=== PATIENT | male | born 1945 | race Caucasian/White ===

== ENCOUNTER 2018-05-14 12:12 | Emergency (ER) | payer MEDICARE ==
[2018-05-14 12:35] LABS: ABSOLUTE BASOPHILS # (AUTO) 0.1 10^3/uL (0.0-0.2); ABSOLUTE EOSINOPHILS # (AUTO) 0.1 10^3/uL (0.0-0.6); ABSOLUTE LYMPHOCYTES (AUTO) 1.6 10^3/uL (0.5-4.7); ABSOLUTE MONOCYTES (AUTO) 1.2 10^3/uL (0.1-1.4); ABSOLUTE NEUT (AUTO) 4.7 10^3/uL (1.7-8.2); EOSINOPHILS % (AUTO) 1.9 % (0-6); HEMATOCRIT 49.2 % (37.9-51.0); LYMPHOCYTES % (AUTO) 20.8 % (13-45); MEAN CORPUSCULAR HGB CONC 34.5 g/dL (32.0-36.0); MEAN CORPUSCULAR VOLUME 96 fl (80-97); MONOCYTES % (AUTO) 15.3 % (3-13); PLATELET COUNT 265 10^3/uL (150-450); RED BLOOD COUNT 5.15 10^6/uL (4.35-5.55); RED CELL DISTRIBUTION WIDTH 14.3 % (11.5-14.0); TOTAL CELLS COUNTED % (AUTO) 100 %; WHITE BLOOD COUNT 7.7 10^3/uL (4.0-10.5)
--- NOTE | 2018-05-14 12:55 | ER Document Report ---
ED General - General Chief Complaint: Irregular Pulse Stated Complaint: CHEST PAIN Time Seen by Provider: 05/14/18 12:49 Notes: Patient brought in by EMS complaining of feeling "sick and lousy" for the past month or 2, since his . Patient's son lives with him and helps and fixing meals, etc. Patient is very nonspecific about symptoms he is having. Says he is sore all over. Complains of a headache, nausea, some shortness of breath occasionally, occasional chest pains, denies UTIs., But for the most part, patient simply answers "I do not know" to almost every question I asked him. And, after saying that, the patient then says he does not remember much of anything since his . He mentioned his 's passing at least a dozen times while I was obtaining his history of present illness. Patient is on Xarelto. He has atrial fibrillation and he thinks that is why he is on the anticoagulant. Additionally, he has medications for hypertension, high cholesterol, gout, and thyroid, as well as an antidepressant. - Related Data Allergies/Adverse Reactions: No Known Allergies Allergy (Verified 05/14/18 12:22) Past Medical History - Social History Smoking Status: Unknown if Ever Smoked Cigarette use (# per day): No Family History: Reviewed & Not Pertinent - Past Medical History Cardiac Medical History: Reports: Hx Atrial Fibrillation, Hx Hypercholesterolemia, Hx Hypertension Neurological Medical History: Denies: Hx Cerebrovascular Accident Endocrine Medical History: Reports: Hx Hypothyroidism. Denies: Hx Diabetes Mellitus Type 1, Hx Diabetes Mellitus Type 2 Musculoskeletal Medical History: Reports Hx Gout Psychiatric Medical History: Reports: Hx Depression Past Surgical History: Reports: None Review of Systems - Review of Systems Notes: REVIEW OF SYSTEMS: Patient answers I do not know to almost every question I asked him. CONSTITUTIONAL : Does not know if he has had a fever. EENT: Denies eye, ear, nose or mouth or throat pain or other symptoms. CARDIOVASCULAR: Occasional chest pain. RESPIRATORY: Occasional cough, chest congestion, or shortness of breath. GASTROINTESTINAL: Nauseated but denies abdominal pain or vomiting, or diarrhea. Does not know when he had his last bowel movement. GENITOURINARY: Does not know if he has any difficulty or painful urinating, urinary frequency, blood in urine. MUSCULOSKELETAL: Denies back or neck pain. Denies joint pain or swelling. SKIN: Denies rash or skin lesions. NEUROLOGICAL: Denies LOC or altered mental status. Says his memory has gone since his a month or 2 ago. Occasional headache. Denies sensory loss or motor deficits. ALL OTHER SYSTEMS REVIEWED AND NEGATIVE. Physical Exam - Vital signs Vitals: Pulse Ox 97 05/14/18 12:14 Interpretation: Normal, Other - Irregular heart rate. - Notes Notes: PHYSICAL EXAMINATION: GENERAL: Well-appearing, in no acute distress. Vital signs are all essentially normal. HEAD: Atraumatic, normocephalic. EYES: Pupils equal round and reactive to light, extraocular movements intact. ENT: oropharynx clear without exudates. Moist mucous membranes. NECK: Normal range of motion, supple. LUNGS: Breath sounds clear and equal bilaterally. HEART: Irregularly irregular rate at about 55 bpm. without murmurs. ABDOMEN: Soft, nontender. No guarding or rebound. No masses. BACK: No tenderness throughout entire back. EXTREMITIES: Normal range of motion without pain. No edema of either lower leg. Negative Homans bilaterally. NEUROLOGICAL: Normal speech, normal gait. Normal sensory, motor, and reflex exams. Awake, alert, and oriented x3. Cranial nerves normal. PSYCH: Normal mood, normal affect. SKIN: Warm, dry, no rashes. Course - Re-evaluation Re-evalutation: 05/14/18 16:31 Labs are all essentially normal or of minimal significance. Patient does have a couplet of PVCs on his 12-lead, but is asymptomatic. Patient is able to walk , although he says he cannot walk but very short distance. - Vital Signs Vital signs: Temp Pulse Resp BP Pulse Ox 97.6 F 13 107/69 97 05/14/18 16:27 05/14/18 16:23 05/14/18 16:23 05/14/18 16:23 - Laboratory Result Diagrams: 05/14/18 11:37 05/14/18 11:37 Laboratory results interpreted by me: 05/14/18 05/14/18 05/14/18 11:37 11:37 11:37 RDW 14.3 H Monocytes % 15.3 H PT 18.5 H BUN 30 H Calcium 11.0 H Total Bilirubin 1.6 H Direct Bilirubin 0.6 H Urine Protein Urine Blood Ur Leukocyte Esterase 09/07/18 15:49 RDW Monocytes % PT BUN Calcium Total Bilirubin Direct Bilirubin Urine Protein 30 H Urine Blood SMALL H Ur Leukocyte Esterase TRACE H - Diagnostic Test Radiology results interpreted by me: 05/14/18 16:31 Chest x-ray shows slight cardiomegaly but otherwise is normal. - EKG Interpretation by Me Rate: Normal - Rate of 55 Rhythm: A.Fib, PVC's Discharge - Discharge Clinical Impression: Generalized weakness Condition: Stable Disposition: HOME, SELF-CARE Additional Instructions: Weakness We did not find a definite cause for your weakness. This may require further medical tests. Weakness can be caused by infection, physical exhaustion , rapid weight loss, dehydration, or medicine side effects. Diseases of the muscles, heart, nerves, and blood vessels can make you weak. Sometimes the problem is simply depression or lack of exercise. You should get plenty of rest. Unless the doctor tells you otherwise, it's usually best to add short periods of regular mild exercise. Eat a nutritious diet with multiple small, low-sugar meals. If symptoms continue, additional medical evaluation will be necessary. Be sure to follow up as instructed. If you become very dizzy, nauseated, or feel like you're going to faint, lie down right away. Wait until the symptoms have passed before you get up again. Stand up slowly. Call the doctor or return if you develop chest pain, abdominal pain, severe headache, irregular heartbeat or very fast pulse, confusion, vision problems, fever, muscular pain, or any other new symptom. Depression Your evaluation reveals that you have mental depression. While symptoms may be vague, they often include disturbance of sleep, fatigue, loss of appetite , and general loss of interest in life. While depression may be a side effect of drugs, or a reaction to a major change in your life, many cases have no known cause. If depression is acute, and related to a major loss in your life, you can expect it to clear completely with time. If you have been depressed a long time , are prone to repeated bouts of depression or low mood, or have been thinking of suicide, get help. Depression can be treated with anti-depressant medication and counselling. Long-term depression will often take a few weeks to clear, even with appropriate medication. Follow-up care is important. Contact your physician, the hospital emergency center, crisis line, or your counsellor if you are losing control or having self-destructive thoughts. NORMAL EXAM AND WORKUP: At this time, your examination and workup show no significant abnormality. No significant abnormal physical findings were noted. All laboratory, EKG, and imaging (x-ray, CT scans, ultrasound) studies that were ordered show no significant abnormality. Although your examination and all studies that were ordered showed no significant abnormal finding, there are no examinations and no studies that are 100% accurate. There is always the possibility that some abnormality could exist and not be detected with physical examination or within the limits and capabilities of laboratory and other studies. You should return or follow up as you were instructed on your visit today for further evaluation if your symptoms do not resolve. Follow-up with your primary care provider Thursday for further evaluation. FOLLOW-UP CARE: If you have been referred to a physician for follow-up care, call the physician s office for an appointment as you were instructed or within the next two days. If you experience worsening or a significant change in your symptoms, notify the physician immediately or return to the Emergency Department at any time for re-evaluation. Referrals: LOCALMD,NO [NO LOCAL MD] - Follow up as needed
[2018-05-14 13:00] LABS: ALANINE AMINOTRANSFERASE 46 U/L (21-72); ALBUMIN 4.5 g/dL (3.5-5.0); ALKALINE PHOSPHATASE 67 U/L (38-126); ANION GAP 12 (5-19); ASPARTATE AMINO TRANSFERASE 42 U/L (17-59); BILIRUBIN,DIRECT 0.6 mg/dL (0.0-0.4); BILIRUBIN,TOTAL 1.6 mg/dL (0.2-1.3); BLOOD UREA NITROGEN 30 mg/dL (7-20); CARBON DIOXIDE 27 mmol/L (22-30); CHLORIDE 99 mmol/L (98-107); CREATINE KINASE 122 U/L (55-170); GLUCOSE 91 mg/dL (75-110); POTASSIUM 4.3 mmol/L (3.6-5.0); SODIUM 138.1 mmol/L (137-145); TOTAL PROTEIN 7.8 g/dL (6.3-8.2)
[2018-05-14 13:09] LABS: INTERNATIONAL RATION (INR) 1.46; PROTHROMBIN TIME 18.5 SEC (11.4-15.4)
[2018-05-14 13:11] LABS: CREATINE KINASE MB 3.71 ng/mL (<4.55); TROPONIN I 0.021 ng/mL
--- NOTE | 2018-05-14 13:15 | EKG REPORT ---
SEVERITY:- ABNORMAL ECG - ATRIAL FIBRILLATION RUN OF VENTRICULAR PREMATURE COMPLEXES LEFT ANTERIOR FASCICULAR BLOCK : Confirmed by: Leandro Lopez MD 14-May-2018 13:14:07
--- NOTE | 2018-05-14 13:16 | RADIOLOGY REPORT (SQ) ---
EXAM DESCRIPTION: CHEST SINGLE VIEW COMPLETED DATE/TIME: 05/14/2018 1:06 pm REASON FOR STUDY: cp COMPARISON: None. EXAM PARAMETERS: NUMBER OF VIEWS: One view. TECHNIQUE: Single frontal radiographic view of the chest acquired. RADIATION DOSE: NA LIMITATIONS: None. FINDINGS: LUNGS AND PLEURA: No opacities, masses or pneumothorax. No pleural effusion. MEDIASTINUM AND HILAR STRUCTURES: No masses. Contour normal. HEART AND VASCULAR STRUCTURES: Cardiac silhouette is mildly enlarged. BONES: No acute findings. HARDWARE: None in the chest. OTHER: No other significant findings. IMPRESSION: No acute changes. Cardiac silhouette is mildly enlarged. TECHNICAL DOCUMENTATION: JOB ID: [id number] [employer]- All Rights Reserved Reading location - IP/workstation name: [email or web address]
[2018-05-14 16:09] LABS: APPEARANCE,URINE SLIGHTLY-CLOUDY; BILIRUBIN,URINE NEGATIVE (NEGATIVE); COLOR,URINE YELLOW; GLUCOSE, URINE NEGATIVE (NEGATIVE); KETONES,URINE NEGATIVE (NEGATIVE); LEUKOCYTE ESTERASE,URINE TRACE (NEGATIVE); NITRITE,URINE NEGATIVE (NEGATIVE); PROTEIN,URINE 30 mg/dL (NEGATIVE); URINE SPECIFIC GRAVITY 1.009; UROBILINOGEN,URINE NEGATIVE mg/dL (<2.0)
[2018-05-14 18:06] VITALS: BP 119/83
== END 2018-05-14 18:15 | disposition home or self-care (01) ==
LOC: ER 12:12
DX: R53.1 Weakness (principal); R07.9 Chest pain, unspecified; R51 Headache; R11.0 Nausea; R06.02 Shortness of breath; Z79.01 Long term (current) use of anticoagulants; I48.91 Unspecified atrial fibrillation; I10 Essential (primary) hypertension
CPT/HCPCS: 36415; 71045; 80053; 81001; 82550; 82553; 84484; 85025; 85610; 93005; 93010; 99285

== ENCOUNTER 2018-06-21 03:45 | Emergency (ER) | payer MEDICARE ==
--- NOTE | 2018-06-21 05:22 | ER Document Report ---
ED Psych Disorder / Suicide - General Chief Complaint: Altered Mental Status Stated Complaint: PSYCH EVAL Time Seen by Provider: 06/21/18 05:03 TRAVEL OUTSIDE OF THE [place] IN LAST 30 DAYS: No - Related Data Allergies/Adverse Reactions: No Known Allergies Allergy (Verified 05/14/18 12:22) Past Medical History - Social History Smoking Status: Unknown if Ever Smoked Family History: Reviewed & Not Pertinent Patient has suicidal ideation: No Patient has homicidal ideation: No - Past Medical History Cardiac Medical History: Reports: Hx Atrial Fibrillation, Hx Hypercholesterolemia, Hx Hypertension Neurological Medical History: Denies: Hx Cerebrovascular Accident Endocrine Medical History: Reports: Hx Hypothyroidism. Denies: Hx Diabetes Mellitus Type 1, Hx Diabetes Mellitus Type 2 Renal/ Medical History: Denies: Hx Peritoneal Dialysis Musculoskeletal Medical History: Reports Hx Gout Psychiatric Medical History: Reports: Hx Depression Course - Laboratory Result Diagrams: 06/21/18 04:50 06/21/18 04:50
[2018-06-21 05:29] LABS: ABSOLUTE EOSINOPHILS # (AUTO) 0.1 10^3/uL (0.0-0.6); ABSOLUTE LYMPHOCYTES (AUTO) 1.1 10^3/uL (0.5-4.7); ABSOLUTE MONOCYTES (AUTO) 0.9 10^3/uL (0.1-1.4); ABSOLUTE NEUT (AUTO) 6.4 10^3/uL (1.7-8.2); BASOPHILS % (AUTO) 0.5 % (0-2); EOSINOPHILS % (AUTO) 0.7 % (0-6); HEMATOCRIT 40.4 % (37.9-51.0); HEMOGLOBIN 14.5 g/dL (13.5-17.0); LYMPHOCYTES % (AUTO) 13.3 % (13-45); MEAN CORPUSCULAR HEMOGLOBIN 33.9 pg (27.0-33.4); MEAN CORPUSCULAR VOLUME 94 fl (80-97); MONOCYTES % (AUTO) 10.8 % (3-13); PLATELET COUNT 288 10^3/uL (150-450); RED BLOOD COUNT 4.29 10^6/uL (4.35-5.55); SEGMENTED NEUTROPHILS % (AUTO) 74.7 % (42-78); TOTAL CELLS COUNTED % (AUTO) 100 %; WHITE BLOOD COUNT 8.6 10^3/uL (4.0-10.5)
--- NOTE | 2018-06-21 05:39 | ER Document Report ---
ED Medical Screen (RME) - General TRAVEL OUTSIDE OF THE [place] IN LAST 30 DAYS: No <ALVIN SESAY - Last Filed: 06/21/18 06:14> <DADA BLAND - Last Filed: 06/21/18 06:38> - General Chief Complaint: Altered Mental Status Stated Complaint: PSYCH EVAL Time Seen by Provider: 06/21/18 05:03 Notes: 73-year-old male who presents for "not listening to my son". Patient is demented. Patient states it is 1944 and that Carlos is the president. I have greeted and performed a rapid initial assessment of this patient. A comprehensive ED assessment and evaluation of the patient, analysis of test results, and completion of the medical decision making process will be conducted by additional ED providers. Review of systems: Unobtainable secondary to dementia Physical Exam: General: Alert, appears well. HEENT: Normocephalic. Atraumatic. PERRLA. Extraocular movements intact. Oropharynx clear. Neck: Supple. Respiratory: No respiratory distress. Abdominal: Normal Inspection. No distension. Extremities: Moves all four extremities. Neurological: Thinks it is 1944 with Carlos as president. Psychological: Yells "I would like to fuck you" when exiting the room Skin: Warm. Dry. Normal color. (ALVIN SESAY) - Related Data Allergies/Adverse Reactions: No Known Allergies Allergy (Verified 05/14/18 12:22) Past Medical History - Past Medical History Cardiac Medical History: Reports: Hx Atrial Fibrillation, Hx Hypercholesterolemia, Hx Hypertension Neurological Medical History: Denies: Hx Cerebrovascular Accident Endocrine Medical History: Reports: Hx Hypothyroidism. Denies: Hx Diabetes Mellitus Type 1, Hx Diabetes Mellitus Type 2 Renal/ Medical History: Denies: Hx Peritoneal Dialysis Musculoskeltal Medical History: Reports Hx Gout Psychiatric Medical History: Reports: Hx Depression <ALVIN SESAY - Last Filed: 06/21/18 06:14> Course - Laboratory Result Diagrams: 06/21/18 04:50 06/21/18 04:50 <ALVIN SESAY - Last Filed: 06/21/18 06:14> - Laboratory Result Diagrams: 06/21/18 04:50 06/21/18 04:50 <DADA BLAND - Last Filed: 06/21/18 06:38> - Laboratory Laboratory results interpreted by me: 06/21/18 06/21/18 06/21/18 04:50 04:50 04:50 RBC 4.29 L MCH 33.9 H RDW 15.0 H Creatine Kinase 508 H CK-MB (CK-2) 8.94 H Urine Urobilinogen 06/21/18 05:00 RBC MCH RDW Creatine Kinase CK-MB (CK-2) Urine Urobilinogen 4.0 H
[2018-06-21 05:49] LABS: ALANINE AMINOTRANSFERASE 40 U/L (21-72); ALBUMIN 3.9 g/dL (3.5-5.0); ALKALINE PHOSPHATASE 91 U/L (38-126); ANION GAP 13 (5-19); ASPARTATE AMINO TRANSFERASE 57 U/L (17-59); BILIRUBIN,DIRECT 0.6 mg/dL (0.0-0.4); BILIRUBIN,TOTAL 1.6 mg/dL (0.2-1.3); BLOOD UREA NITROGEN 11 mg/dL (7-20); CALCIUM 9.1 mg/dL (8.4-10.2); CARBON DIOXIDE 23 mmol/L (22-30); CHLORIDE 88 mmol/L (98-107); GLUCOSE 102 mg/dL (75-110); POTASSIUM 4.2 mmol/L (3.6-5.0); SODIUM 123.5 mmol/L (137-145)
[2018-06-21 06:00] LABS: CREATINE KINASE MB 8.94 ng/mL (<4.55); TROPONIN I 0.015 ng/mL
[2018-06-21 06:24] LABS: APPEARANCE,URINE CLEAR; BILIRUBIN,URINE NEGATIVE (NEGATIVE); COLOR,URINE YELLOW; GLUCOSE, URINE NEGATIVE (NEGATIVE); KETONES,URINE NEGATIVE (NEGATIVE); LEUKOCYTE ESTERASE,URINE NEGATIVE (NEGATIVE); NITRITE,URINE NEGATIVE (NEGATIVE); PROTEIN,URINE NEGATIVE (NEGATIVE); URINE SPECIFIC GRAVITY 1.008
--- NOTE | 2018-06-21 06:38 | ER Document Report ---
ED General - General Chief Complaint: Altered Mental Status Stated Complaint: PSYCH EVAL Time Seen by Provider: 06/21/18 05:03 Notes: 73-year-old male presents to the emergency department for psychiatric evaluation and acting strangely. The patient was brought in by his son for trying to take a ATV ride in the middle the night. He is also trying to start a car with a phone. Son states the patient is usually okay during the day but at night he begins acting very strangely. Patient initially told triage during provider and nursing that the date was wrong that he name the president. Patient was very hypersexual making advances toward staff. On my exam here this morning the patient was lucid stating the correct date location and president. The patient denied any suicidal homicidal thoughts denies visual auditory hallucinations. Denies any pain or complaints. TRAVEL OUTSIDE OF THE [place] IN LAST 30 DAYS: No - Related Data Allergies/Adverse Reactions: No Known Allergies Allergy (Verified 05/14/18 12:22) Past Medical History - Social History Smoking Status: Unknown if Ever Smoked Family History: Reviewed & Not Pertinent Patient has suicidal ideation: No Patient has homicidal ideation: No - Past Medical History Cardiac Medical History: Reports: Hx Atrial Fibrillation, Hx Hypercholesterolemia, Hx Hypertension Neurological Medical History: Denies: Hx Cerebrovascular Accident Endocrine Medical History: Reports: Hx Hypothyroidism. Denies: Hx Diabetes Mellitus Type 1, Hx Diabetes Mellitus Type 2 Renal/ Medical History: Denies: Hx Peritoneal Dialysis Musculoskeletal Medical History: Reports Hx Gout Psychiatric Medical History: Reports: Hx Depression Review of Systems - Review of Systems Constitutional: denies: Chills, Fever Cardiovascular: denies: Chest pain Respiratory: denies: Short of breath Gastrointestinal: denies: Abdominal pain, Diarrhea, Nausea, Vomiting Neurological/Psychological: Confusion, Dementia, Hallucinations. denies: Lost consciousness -: Yes All other systems reviewed and negative Physical Exam - Notes Notes: GENERAL_APPEARANCE: well_nourished, alert, cooperative, no_acute_distress, no_ obvious_discomfort. VITALS: reviewed, see vital signs table. HEAD: no_swelling\tenderness on the head. EYES: conjunctiva_clear. NOSE: no_nasal_discharge. MOUTH: (-)decreased moisture. THROAT: no_airway_obstruction. no_lymphadenopathy NECK: supple, no_neck_tenderness, (-)thyromegaly. BACK: no_back_tenderness. CHEST_WALL: no_chest_tenderness. LUNGS: no_wheezing, no_rales, no_rhonchi, (-)accessory muscle use, good air exchange bilateral. HEART: normal_rate, normal_rhythm, normal_S1, normal_S2, (-)S3, (-)S4, no_ murmur, no_rub. ABDOMEN: normal_BS, soft, no_abd_tenderness, (-)guarding, (-)rebound, no_ organomegaly, no_abd_masses. EXTREMITIES: good pulses in all_extremities, no_swelling\tenderness in the extremities, no_edema. SKIN: warm, dry, good_color, no_rash. MENTAL_STATUS: speech_clear, oriented_X_3, normal_affect, responds_ appropriately to questions. NEURO: Neg Motor or Sensory Deficits on exam, CN 2-12 intact, DTR 2+ symmetric x 4, No cerbellar signs PSYCH: The patient denies any suicidal homicidal ideation denies visual or auditory hallucination was appropriate with me. Asking about his son and what happened he stated that he is not sure why his son reacted that way and really has no recall the specifics of the event Course - Re-evaluation Re-evalutation: 06/21/18 06:37 73-year-old male was brought in for bizarre behavior. The patient seems to be lucid here but listening to staff and his son the patient is worse at nighttime. The patient may be sundowning. This may likely be advancing dementia. A medical workup is being complete. The patient was signed to see psychiatry however my thought is that this may be advancing dementia were going to rule out any kind of significant HAND FUNNEL COATER cause. 06/21/18 09:22 I rechecked the patient and he is still lucid. He does have some hyponatremia. I encouraged him to eat a high sodium diet. I do not see any meds in the system to think this is due to diuretics. Due to his age I think a lot of these findings are not unexpected. His head scan was normal no strokes tumors or bleeds. Again I believe this is likely advancing dementia I recommend follow-up with his family doctor to have his sodium rechecked. He is lucid and neurologically intact for me here. - Laboratory Result Diagrams: 06/21/18 04:50 06/21/18 04:50 Laboratory results interpreted by me: 06/21/18 06/21/18 06/21/18 04:50 04:50 04:50 RBC 4.29 L MCH 33.9 H RDW 15.0 H Sodium 123.5 L Chloride 88 L Total Bilirubin 1.6 H Direct Bilirubin 0.6 H Creatine Kinase 508 H CK-MB (CK-2) Urine Urobilinogen Salicylates < 1.0 L Acetaminophen < 10 L 06/21/18 06/21/18 04:50 05:00 RBC MCH RDW Sodium Chloride Total Bilirubin Direct Bilirubin Creatine Kinase CK-MB (CK-2) 8.94 H Urine Urobilinogen 4.0 H Salicylates Acetaminophen Discharge - Discharge Clinical Impression: Hyponatremia Condition: Good Disposition: PSYCH HOSP/UNIT Instructions: Hyponatremia ([facility]) Additional Instructions: Please eat a high sodium diet and have your blood blood work rechecked in a week to recheck your electrolytes and sodium.
[2018-06-21 06:44] LABS: URINE AMPHETAMINES SCREEN NEGATIVE; URINE BARBITURATES SCREEN NEGATIVE; URINE BENZODIAZEPINES SCREEN NEGATIVE; URINE COCAINE SCREEN NEGATIVE; URINE MARIJUANA (THC) SCREEN NEGATIVE; URINE METHADONE SCREEN NEGATIVE; URINE PHENCYCLIDINE SCREEN NEGATIVE
[2018-06-21 06:44] LABS: ACETAMINOPHEN < 10 ug/mL (10-30); ALCOHOL < 10 mg/dL (NONE DETECTED); SALICYLATE < 1.0 mg/dL (2.0-20.0)
--- NOTE | 2018-06-21 07:50 | EKG REPORT ---
SEVERITY:- ABNORMAL ECG - ATRIAL FIBRILLATION LEFT ANTERIOR FASCICULAR BLOCK : Confirmed by: Leandro Lopez MD 21-Jun-2018 07:50:03
[2018-06-21 08:23] LABS: FREE T4 (FREE THYROXINE) 1.88 ng/dL (0.78-2.19)
[2018-06-21 08:37] LABS: THYROID STIMULATING HORMONE 1.86 uIU/mL (0.47-4.68)
--- NOTE | 2018-06-21 08:51 | RADIOLOGY REPORT (SQ) ---
EXAM DESCRIPTION: CT HEAD WITHOUT COMPLETED DATE/TIME: 06/21/2018 8:08 am REASON FOR STUDY: Altered mental status COMPARISON: None. TECHNIQUE: Axial images acquired through the brain without intravenous contrast. Images reviewed wi th bone, brain and subdural windows. Additional sagittal and coronal reconstructions were generated. Images stored on PACS. All CT scanners at this facility use dose modulation, iterative reconstruction, and/or weight based d osing when appropriate to reduce radiation dose to as low as reasonably achievable (ALARA). [facility]: Dose Right [facility]: CareDose [facility]: Dose Right [facility]: Teradose 4D [facility]: Smart [employer] RADIATION DOSE: CT Rad equipment meets quality standard of care and radiation dose reduction techniq ues were employed. CTDIvol: 53.2 mGy. DLP: 1044 mGy-cm. mGy. LIMITATIONS: None. FINDINGS: VENTRICLES: Normal size and contour. The cisterns are patent. CEREBRUM: No masses. No hemorrhage. No midline shift. No evidence for acute infarction. Normal gra y/white matter differentiation. No areas of low density in the white matter. CEREBELLUM: No masses. No hemorrhage. No alteration of density. No evidence for acute infarction. EXTRAAXIAL SPACES: No fluid collections. No masses. ORBITS AND GLOBE: No intra- or extraconal masses. Normal contour of globe without masses. CALVARIUM: No fracture. PARANASAL SINUSES: Mild deviation of the nasal septum to the right. Nasal spur noted. No fluid or m ucosal thickening. SOFT TISSUES: No mass or hematoma. OTHER: No other significant finding. IMPRESSION: 1. No acute intracranial abnormality. NORMAL BRAIN CT WITHOUT CONTRAST. EVIDENCE OF ACUTE STROKE: NO. COMMENT: Quality ID # [id number]: Final reports with documentation of one or more dose reduction techniques (e.g., Automated exposure control, adjustment of the mA and/or kV according to patient size, use of iterative reconstruction technique) TECHNICAL DOCUMENTATION: JOB ID: [id number] [employer]- All Rights Reserved Reading location - IP/workstation name: [email or web address]
--- NOTE | 2018-06-21 12:13 | PSYCHOLOGICAL NOTE ---
Psych Note - Psych Note Psych Note: Reason for Consult: Altered Mental Status 73-year-old male presents to the emergency department for psychiatric evaluation and acting strangely. Patient was able to correctly identify the year, his current location (to include [facility], [facility]) and the current president. Patient was able to demonstrate immediate recall for memory however anything longer i.e. 1 minute and 5-minute recall he was unsuccessful. Patient demonstrated difficulty with abstract rational level thinking and was completely able to answer executive functioning questions. He was able to correctly identify one safety question of calling 911. Patient disclosed that he has recently purchased the "fast score bed in the [employer]" and is supposed to be picking up this morning to move back to [place]. He reports that he is planning to move back with other family members in [place]. Patient became tearful stating that he has been having memory difficulties and he feels like he is "lost everything" when his of 52 years 6 months ago. Behavioral health team contacted patient's son, Julio César, who discloses the patient's behaviors started a few days ago. Mainly the erratic behaviors are in the evenings. He notes the patient has not really been sleeping. Patient was started on Paxil about a month ago after the recent of his . It appeared to be working however just recently these behaviors started. The patient attempted to buy a truck which he cannot afford, tried to start the car with his phone, locking the dogs in the car, and started drinking and smoking again after 30 yrs of sobriety. Patient's a few months ago. Patient does not have a history of mental health however did attempt suicide 1-2 weeks ago by taking a bottle of Vicodin. The patient did not receive medical attention because the patient son thought that the patient just had food poisoning. Patient's son disclosed that he feels that he cannot handle the patient at home because of these recent behaviors. Patient is alert and orientated to person and place. He is partially orientated to time and circumstance. Mood is dysphoric with tearful affect when talking about his , all other times he is euthymic with congruent affect. Patient denies suicidal and homicidal ideation. Patient is demonstrating difficulties with a number of cognitive functioning such as abstract, rational, executive, and problem solving. Eye contact was well- maintained. Conversational speech was overall within normal rate, tone and prosody. Every once in a while it is noted the patient appeared mumbled more when he did not know an answer. Attention and concentration are poor. Insight , judgment, impulse control are poor. Medication recommendations per [facility]'s contracted psychiatrist Dr. Josh MCNEILL are as follows Please discontinue home medication of Paxil Please start BuSpar 5 mg every morning and 10 mg nightly Please start Prozac 20 mg daily Diagnosis V62.82 (Z63.4) Uncomplicated bereavement R/O 799.59 (R41.9) unspecified neurocognitive disorder Impression\\plan: Patient is cleared from acute psychiatric services. Patient is recommended to follow-up with neurology. Patient's presentation, evaluation , and family reports indicates possible neurocognitive disorder. This is also complicated by the fact that the patient has started drinking again after 30 years of sobriety. It is recommended the family ensure the patient does not have access to medications, weapons, and alcohol. Patient would benefit from grief counseling. Medication recommendations have been provided. Dr. Rodriguez was consulted and the care management this patient; attending physician is agreement with recommendations and disposition.
[2018-06-21] MEDS: BUSPIRONE HCL 10 MG TABLET PO SCH (18:06)
[2018-06-21] MEDS: FLUOXETINE HCL 20 MG CAPSULE PO SCH (18:06)
[2018-06-21] MEDS ORDERED: ALBUTEROL SULFATE HFA (90 MCG/PUFF) 8 GM MDI (1 MDI/ER DISP) IH PRN (18:15)
[2018-06-21] MEDS ORDERED: ALBUTEROL SULFATE HFA (90 MCG/PUFF) 200 PUFF/8.5 GM MDI IH PRN (18:48)
[2018-06-21] MEDS ORDERED: BUSPIRONE HCL 10 MG TABLET PO SCH (22:00)
[2018-06-21] MEDS ORDERED: ATORVASTATIN CALCIUM 10 MG TABLET PO SCH (22:00)
[2018-06-21] MEDS ORDERED: (PENDING PHARMACY ID) (Pravastatin Sodium [Pravachol] 40 MG) PO SCH (22:00)
[2018-06-22] MEDS ORDERED: LEVOTHYROXINE SODIUM 0.025 MG TABLET PO SCH (06:00)
[2018-06-22] MEDS ORDERED: LEVOTHYROXINE SODIUM 125 MG PO SCH (06:00)
[2018-06-22] MEDS ORDERED: LEVOTHYROXINE SODIUM 0.1 MG TABLET PO SCH (06:00)
[2018-06-22] MEDS: BUSPIRONE HCL 10 MG TABLET PO SCH (07:50)
--- NOTE | 2018-06-22 09:30 | ER Document Report ---
Doctor's Note Notes: 06/22/18 09:23 Saw the patient this morning and rounding. He is doing quite well. He is fully alert and oriented x4. He is very appropriate. We spoke about yesterday's events. He is very remorseful. After his had he had picked up drinking and smoking again. He has not had any alcohol in over 24 hours. He answers all his orientation questions appropriately. We spoke about dementia. He verbalized understanding. I did tell the patient is good to have good days and bad days. He will need to follow-up with neurology outpatient. We spoke about his diet and the diuretics that he is on. Psychiatry has changed his antidepressant medication to Prozac and we have added some BuSpar on for him which should help with his agitation at night to help him sleep. The family again is very reluctant to take him home. The patient has been nothing but appropriate for his here overnight he did not have any additional sundowning episodes here. I think he should be okay as long as he stays away from alcohol and gets back into a familiar environment. I did stress to him and family that this is not the end of this there will need to be follow-up with neuropsychiatry. Dementia will progress and there will be good days and bad days. Patient is not significantly mentally ill he is grieving from his . This is why he is picked up the alcohol and smoking again. Hopefully the Prozac and BuSpar will help him. He understands that he will need to follow -up.
[2018-06-22] MEDS: FLUOXETINE HCL 20 MG CAPSULE PO SCH (09:51)
[2018-06-22] MEDS ORDERED: (PENDING PHARMACY ID) (Paroxetine Hcl [Paxil] 10 MG) PO SCH (10:00)
[2018-06-22] MEDS ORDERED: (PENDING PHARMACY ID) (Irbesartan [Avapro] 300 MG) PO SCH (10:00)
[2018-06-22] MEDS ORDERED: PAROXETINE HCL 20 MG TABLET PO SCH (10:00)
[2018-06-22] MEDS ORDERED: LOSARTAN POTASSIUM 50 MG TABLET PO SCH (10:00)
[2018-06-22] MEDS ORDERED: HYDROCHLOROTHIAZIDE 25 MG TABLET PO SCH (10:00)
[2018-06-22] MEDS ORDERED: ALLOPURINOL 100 MG TABLET PO SCH (10:00)
[2018-06-22 12:08] VITALS: BP 129/70
[2018-06-22] MEDS ORDERED: RIVAROXABAN 10 MG TABLET PO SCH (17:00)
== END 2018-06-22 13:45 | disposition home or self-care (01) ==
LOC: ER 03:45
DX: E87.1 Hypo-osmolality and hyponatremia (principal); Z63.4 Disappearance and death of family member; R41.82 Altered mental status, unspecified; F03.90 Unspecified dementia, unspecified severity, without behavioral disturbance, psychotic disturbance, mood disturbance, and anxiety; I48.91 Unspecified atrial fibrillation; E78.00 Pure hypercholesterolemia, unspecified; I10 Essential (primary) hypertension; E03.9 Hypothyroidism, unspecified
CPT/HCPCS: 93005; 99285; 36415; 84439; 82553; 80307 ×4; 82140; 82550; 84443; 85025; 80053; 81001; 84484; 83605; 70450; 93010; A9270 ×9

== ENCOUNTER 2018-07-07 16:25 | Emergency (ER) | payer BC, MEDICARE ==
--- NOTE | 2018-07-07 17:08 | ER Document Report ---
ED General - General TRAVEL OUTSIDE OF THE [place] IN LAST 30 DAYS: No <STACY NEVILLE - Last Filed: 07/07/18 18:47> <EDGAR BRYANT - Last Filed: 07/07/18 21:02> <VICKI FUNEZ - Last Filed: 07/08/18 09:41> - General Chief Complaint: Depression Stated Complaint: DEPRESSION Time Seen by Provider: 07/07/18 16:36 - HPI Notes: Patient is a 73-year-old male with a history of depression, dementia with possible neurocognitive disorder, Valarie porter (on Xarelto) who presents to the ED by EMS because his neighbors thought he was acting "crazy." Patient states that he has been eating and drinking without any difficult. He is urinating normally. He is having normal bowel movements. Patient states that he lost his a few months ago and has been depressed since then. He has no other concerns or complaints at this time. Patient states that he has been smoking cigarettes since his and occasionally alcohol. He was evaluated about 2 weeks ago for similar complaint and was evaluated by our psychology team at that time. They recommended a neurology consult and possible consideration of placement. Denies any headache, fever, head injury, neck pain , URI, sore throat, chest pain, palpitations, syncope, cough, shortness of breath, wheeze, dyspnea, abdominal pain, nausea/vomiting/diarrhea, urinary retention, dysuria, hematuria, loss of control of bowel or bladder, numbness/ tingling, saddle anesthesia, muscle paralysis/weakness, or rash. (STACY NEVILLE) - Related Data Allergies/Adverse Reactions: No Known Allergies Allergy (Verified 07/08/18 03:32) Past Medical History - Social History Smoking Status: Current Every Day Smoker Family History: Reviewed & Not Pertinent Patient has suicidal ideation: No Patient has homicidal ideation: No - Past Medical History Cardiac Medical History: Reports: Hx Atrial Fibrillation, Hx Hypercholesterolemia, Hx Hypertension Neurological Medical History: Denies: Hx Cerebrovascular Accident Endocrine Medical History: Reports: Hx Hypothyroidism. Denies: Hx Diabetes Mellitus Type 1, Hx Diabetes Mellitus Type 2 Renal/ Medical History: Denies: Hx Peritoneal Dialysis Musculoskeletal Medical History: Reports Hx Gout Psychiatric Medical History: Reports: Hx Depression <STACY NEVILLE - Last Filed: 07/07/18 18:47> Review of Systems - Review of Systems -: Yes All other systems reviewed and negative <STACY NEVILLE - Last Filed: 07/07/18 18:47> Physical Exam <STACY NEVILLE - Last Filed: 07/07/18 18:47> <ANNETTEEDGAR - Last Filed: 07/07/18 21:02> <VICKI FUNEZ Rusty - Last Filed: 07/08/18 09:41> - Vital signs Vitals: Temp Pulse Resp BP Pulse Ox 98.7 F 51 L 17 127/68 H 99 07/07/18 16:37 07/07/18 16:37 07/07/18 16:37 07/07/18 16:37 07/07/18 16:37 - Notes Notes: PHYSICAL EXAMINATION: GENERAL: Well-appearing, well-nourished and in no acute distress. Alert and Oriented to person, place, and time. He knows who the current president is and is communicating well. He did have one question in the beginning where he could not remember his date, but recalled in later on. HEAD: Atraumatic, normocephalic. Non-tender. EYES: Pupils equal round and reactive to light, extraocular movements intact, sclera anicteric, conjunctiva are normal. No nystagmus. vis tinoco intact. ENT: EAC clear b/l. TM's intact b/l without erythema, fluid, or perforation. Nares patent and without discharge. oropharynx clear without exudates. No tonsilar hypertrophy or erythema. Moist mucous membranes. No sinus tenderness. NECK: Normal range of motion, supple without lymphadenopathy. No rigidity/ meningismus. No midline tenderness. LUNGS: Breath sounds clear to auscultation bilaterally and equal. No wheezes rales or rhonchi. HEART: Regular rate and rhythm without murmurs, rubs, gallops. ABDOMEN: Soft, nontender, nondistended abdomen. No guarding, no rebound. Normal bowel sounds present. No CVA tenderness bilaterally. Musculoskeletal: Ext's b/l: FROM to passive/active. Strength 5+/5. No deficits noted. No bony tenderness of extremities. Extremities: No cyanosis, clubbing, or edema b/l. Peripheral pulses 2+. Capillary refill less than 2 seconds. NEUROLOGICAL: NIH 0. GCS 15. Cranial nerves grossly intact. Normal speech, normal gait. Normal sensory, motor exams. Reflexes 2+ b/l. SHEILA's negative. Pronator drift negative. Heel/valiente, finger/nose wnl. PSYCH: Normal mood, normal affect. SKIN: Warm, Dry, normal turgor, no rashes or lesions noted. (STACY NEVILLE) Course - Laboratory Result Diagrams: 07/07/18 17:17 07/07/18 17:17 <STACY NEVILLE - Last Filed: 07/07/18 18:47> - Laboratory Result Diagrams: 07/07/18 17:17 07/07/18 17:17 <EDGAR BRYANT - Last Filed: 07/07/18 21:02> - Laboratory Result Diagrams: 07/07/18 17:17 07/07/18 17:17 <VICKI FUNEZ - Last Filed: 07/08/18 09:41> - Re-evaluation Re-evalutation: 07/07/18 18:47 Patient is an afebrile, well-hydrated, 73-year-old male who presents to the ED with what appears to be dementia related behavior and mentation. Vitals are currently acceptable. PE is otherwise unremarkable. Patient did make improvement with his mouth fluttering his eyes on 1 or 2 occasions throughout my interview, which could be related to a tardive dyskinesia as he is on BuSpar (started 2 weeks ago), but this is just a suspicion at this time. He is nontoxic-appearing and is tolerating p.o. without difficulties. He is not acting belligerent and is alert and oriented. Patient is currently living with family members and I have been in communication with his son, Rogelio. They were primarily concerned about him not sleeping much over the last week and having erratic behavior with noticing the eye fluttering and opening of his mouth. I did order Benadryl. Pt would prefer to go home if able. I did review with the family if they are throwing in the towel and would like him to be placed in a home, or they are willing to take care of him to be able to see his neurologist and everything at home. Son states that he will speak with his brother and for us to call him back when all the tests are back. I did review with Dr. Nicolas who is in agreement and not recommending congentin at this time w/o psych approval/guidance. Pt resting comfortably upon re-evaluation. No new concerns or complaints. Labs currently unremarkable aside from mild hyponatremia and etoh. Waiting for UA/Urine drug screen. 07/07/18 19:05 Transfer of care to Edgar DAW[facility]. (STACY NEVILLE) 07/07/18 08:20 Called but unable to reach son. Plan is for either patient to go home if his workup is negative or stay for discharge planning to be completed in the morning. 07/07/18 21:00 Called back second time at [phone], this time I was able to reach son Reyes , discussed that his remaining workup does not indicate infection or obvious cause of encephalopathy. More likely progressive dementia. Recommended follow- up with neurologist outpatient for next step. Son states unable to come get patient, requests help for caring for patient, states that if needed he can come back and get the patient in the morning. Social service/discharge planning placed. Patient evaluated at bedside, sleeping peacefully, vital signs unremarkable on the monitor. (EDGAR BRYANT) 07/08/18 09:40 Patient was seen and examined. Vital signs reviewed. Reportedly stable overnight. I discussed the case with our case management social worker, who was able to contact the family, and they were agreeable to take the patient home, he was also seen by Adult Protective Services, who cleared him to be discharged back with the family. Patient was agreeable to this plan of care. He had no complaints this morning and was rather pleasant. (VICKI FUNEZ) - Vital Signs Vital signs: Temp Pulse Resp BP Pulse Ox 97.5 F 56 L 20 136/73 H 100 07/08/18 06:00 07/08/18 06:00 07/08/18 06:00 07/08/18 06:00 07/08/18 06:00 - Laboratory Laboratory results interpreted by me: 07/07/18 07/07/18 07/07/18 17:17 17:17 20:27 RBC 4.33 L MCH 34.0 H RDW 14.9 H Sodium 128.8 L Chloride 89 L Urine Urobilinogen 2.0 H Discharge <STACY NEVILLE - Last Filed: 07/07/18 18:47> <EDGAR BRYANT - Last Filed: 07/07/18 21:02> <VICKI FUNEZ - Last Filed: 07/08/18 09:41> - Discharge Clinical Impression: Dementia Qualifiers: Dementia type: unspecified type Dementia behavioral disturbance: without behavioral disturbance Qualified Code(s): F03.90 - Unspecified dementia without behavioral disturbance Condition: Stable Disposition: HOME, SELF-CARE Instructions: Dementia ([facility]) Additional Instructions: Please return to the emergency department if you have any worsening, or concern of your symptoms. Please return to the emergency department if you develop chest pain, difficulty breathing, severe abdominal pain, or ongoing vomiting. Please follow-up with your primary care physician in 2-3 days and any other recommended physicians. If prescribed, take all medications as directed. If you have any questions or concerns do not hesitate to return the emergency department for evaluation. Forms: Elevated Blood Pressure Referrals: NEUROLOGY [Provider Group] - 07/12/18
[2018-07-07 17:35] LABS: ABSOLUTE BASOPHILS # (AUTO) 0.1 10^3/uL (0.0-0.2); ABSOLUTE EOSINOPHILS # (AUTO) 0.1 10^3/uL (0.0-0.6); ABSOLUTE LYMPHOCYTES (AUTO) 1.2 10^3/uL (0.5-4.7); ABSOLUTE MONOCYTES (AUTO) 0.8 10^3/uL (0.1-1.4); ABSOLUTE NEUT (AUTO) 5.2 10^3/uL (1.7-8.2); EOSINOPHILS % (AUTO) 1.6 % (0-6); HEMATOCRIT 41.1 % (37.9-51.0); HEMOGLOBIN 14.7 g/dL (13.5-17.0); LYMPHOCYTES % (AUTO) 16.8 % (13-45); MEAN CORPUSCULAR HGB CONC 35.8 g/dL (32.0-36.0); MEAN CORPUSCULAR VOLUME 95 fl (80-97); MONOCYTES % (AUTO) 11.1 % (3-13); PLATELET COUNT 291 10^3/uL (150-450); RED BLOOD COUNT 4.33 10^6/uL (4.35-5.55); RED CELL DISTRIBUTION WIDTH 14.9 % (11.5-14.0); SEGMENTED NEUTROPHILS % (AUTO) 69.5 % (42-78); TOTAL CELLS COUNTED % (AUTO) 100 %; WHITE BLOOD COUNT 7.4 10^3/uL (4.0-10.5)
[2018-07-07 17:57] LABS: ALANINE AMINOTRANSFERASE 52 U/L (21-72); ALBUMIN 3.8 g/dL (3.5-5.0); ALCOHOL 16 mg/dL (NONE DETECTED); ALKALINE PHOSPHATASE 72 U/L (38-126); ANION GAP 12 (5-19); ASPARTATE AMINO TRANSFERASE 56 U/L (17-59); BILIRUBIN,DIRECT 0.3 mg/dL (0.0-0.4); BILIRUBIN,TOTAL 1.2 mg/dL (0.2-1.3); BLOOD UREA NITROGEN 13 mg/dL (7-20); CALCIUM 9.4 mg/dL (8.4-10.2); CARBON DIOXIDE 28 mmol/L (22-30); CHLORIDE 89 mmol/L (98-107); GLUCOSE 86 mg/dL (75-110); POTASSIUM 3.7 mmol/L (3.6-5.0); SODIUM 128.8 mmol/L (137-145); TOTAL PROTEIN 6.6 g/dL (6.3-8.2)
[2018-07-07] MEDS ORDERED: DIPHENHYDRAMINE HCL 50 MG/ML VIAL IV ONE (18:56)
[2018-07-07] MEDS ORDERED: NORMAL SALINE 1000 ML 1,000 ML IV ONE (18:59)
--- NOTE | 2018-07-07 19:19 | EKG REPORT ---
SEVERITY:- ABNORMAL ECG - ATRIAL FIBRILLATION INCOMPLETE LEFT BUNDLE BRANCH BLOCK : Confirmed by: Deborah Yanes MD 07-Jul-2018 19:17:36
[2018-07-07 20:37] LABS: APPEARANCE,URINE CLEAR; BILIRUBIN,URINE NEGATIVE (NEGATIVE); COLOR,URINE YELLOW; GLUCOSE, URINE NEGATIVE (NEGATIVE); KETONES,URINE NEGATIVE (NEGATIVE); LEUKOCYTE ESTERASE,URINE NEGATIVE (NEGATIVE); NITRITE,URINE NEGATIVE (NEGATIVE); PROTEIN,URINE NEGATIVE (NEGATIVE); URINE SPECIFIC GRAVITY 1.006
[2018-07-07 20:51] LABS: URINE AMPHETAMINES SCREEN NEGATIVE; URINE BARBITURATES SCREEN NEGATIVE; URINE BENZODIAZEPINES SCREEN NEGATIVE; URINE COCAINE SCREEN NEGATIVE; URINE MARIJUANA (THC) SCREEN NEGATIVE; URINE METHADONE SCREEN NEGATIVE; URINE PHENCYCLIDINE SCREEN NEGATIVE
[2018-07-08] MEDS ORDERED: ALBUTEROL SULFATE HFA (90 MCG/PUFF) 200 PUFF/8.5 GM MDI IH PRN (04:06)
[2018-07-08] MEDS ORDERED: LEVOTHYROXINE SODIUM 0.025 MG TABLET PO SCH (06:00)
[2018-07-08] MEDS ORDERED: LEVOTHYROXINE SODIUM 0.1 MG TABLET PO SCH (06:00)
[2018-07-08 07:03] VITALS: BP 136/73
[2018-07-08] MEDS ORDERED: BUSPIRONE HCL 10 MG TABLET PO SCH ×2 (08:00→22:00)
[2018-07-08] MEDS ORDERED: FLUOXETINE HCL 20 MG CAPSULE PO SCH (10:00)
[2018-07-08] MEDS ORDERED: HYDROCHLOROTHIAZIDE 25 MG TABLET PO SCH (10:00)
[2018-07-08] MEDS ORDERED: ALLOPURINOL 100 MG TABLET PO SCH (10:00)
[2018-07-08] MEDS ORDERED: LOSARTAN POTASSIUM 50 MG TABLET PO SCH (10:00)
[2018-07-08] MEDS ORDERED: RIVAROXABAN 10 MG TABLET PO SCH (17:00)
[2018-07-08] MEDS ORDERED: ATORVASTATIN CALCIUM 10 MG TABLET PO SCH (22:00)
== END 2018-07-08 12:15 | disposition home or self-care (01) ==
LOC: ER 16:25
DX: F03.90 Unspecified dementia, unspecified severity, without behavioral disturbance, psychotic disturbance, mood disturbance, and anxiety (principal); F32.9 Major depressive disorder, single episode, unspecified; E87.1 Hypo-osmolality and hyponatremia; I48.91 Unspecified atrial fibrillation; I10 Essential (primary) hypertension; E78.00 Pure hypercholesterolemia, unspecified; E03.9 Hypothyroidism, unspecified; M10.9 Gout, unspecified; F17.210 Nicotine dependence, cigarettes, uncomplicated; Z79.01 Long term (current) use of anticoagulants; Z79.899 Other long term (current) drug therapy
CPT/HCPCS: 93005; 99284; 96361; 96374; 36415; 80307 ×2; 83735; 85025; 80053; 81001; 84484; 93010; A9270 ×6; J1200; J7030